=== PATIENT | female | born 1990 | race Caucasian/White ===

== ENCOUNTER 2020-05-06 18:56 | Outpatient (CLI) | payer MEDICAID | END 2020-05-06 18:57 | disposition home or self-care (01) | LOC: COV 18:56 | PROVIDERS: ATTEND Family Medicine | DX: Z20.828 Contact with and (suspected) exposure to other viral communicable diseases (principal) ==

== ENCOUNTER 2021-09-16 08:00 | Outpatient (CLI) | payer MEDICAID ==
[2021-09-16 22:51] LABS: BACTERIAL VAGINOSIS DNA NEGATIVE (NEGATIVE); CANDIDA GLABRATA DNA NEGATIVE (NEGATIVE); CANDIDA GROUP DNA NEGATIVE (NEGATIVE); CANDIDA KRUSEI DNA NEGATIVE (NEGATIVE); TRICHOMONAS VAGINALIS DNA NEGATIVE (NEGATIVE)
== END 2021-09-16 23:59 ==
LOC: LAB.N 08:00
PROVIDERS: ATTEND Family Medicine
DX: R30.0 Dysuria (principal)
CPT/HCPCS: 87086; 87661; 87801

== ENCOUNTER 2022-05-19 19:54 | Emergency (ER) | payer MEDICAID ==
[2022-05-19 20:11] VITALS: BP 105/74
[2022-05-19] MEDS ORDERED: OXYMETAZOLINE HCL 100 SPRAYS BOTTLE NAS STA (21:23)
--- NOTE | 2022-05-19 21:24 | ED Physician Documentation ---
PD HPI HEENT - Stated complaint Stated Complaint: NOSE BLEED/CLOTS - Chief complaint Chief Complaint: Heent - History obtained from History obtained from: Patient - Additional information Additional information: 31-year-old woman has had nosebleeds for 2 days. Mostly on the left but tonight also on the right. She notes clots. She also has had recently heavy periods. Denies other easy bleeding or bruising. 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: Tubal ligation - Present Medications Home Medications: Ambulatory Orders Medication Instructions Recorded Confirmed No Known Home Medications 05/19/22 05/19/22 - Allergies Allergies/Adverse Reactions: Allergies Allergy/AdvReac Type Severity Reaction Status Date / Time No Known Drug Allergies Allergy Verified 05/19/22 20:11 - Social History Does the pt smoke?: No Smoking Status: Never smoker Does the pt drink ETOH?: Yes Does the pt have substance abuse?: No - Immunizations Immunizations are current?: Yes - POLST Patient has POLST: No PD ED PE NORMAL - Vitals Vital signs reviewed: Yes - General General: Alert and oriented X 3, No acute distress - Neuro Neuro: Alert and oriented X 3, Normal speech - Psych Psych: Normal mood, Normal affect Results - Vitals Vitals: Vital Signs - 24 hr 05/19/22 20:04 Temperature 36.4 C L Heart Rate 80 Respiratory 16 Rate Blood Pressure 105/74 O2 Saturation 99 Oxygen O2 Source Room air - Labs Labs: Laboratory Tests 05/19/22 05/19/22 21:26 21:26 WBC 8.5 RBC 4.11 L Hgb 12.6 Hct 37.0 MCV 90.0 MCH 30.7 MCHC 34.1 RDW 12.4 Plt Count 275 MPV 9.8 Neut # (Auto) 5.6 Lymph # (Auto) 2.3 Hand # (Auto) 0.5 Eos # (Auto) 0.1 Baso # (Auto) 0.0 Absolute Nucleated RBC 0.00 Nucleated RBC % 0.0 PT 11.9 INR 1.1 Procedures - Epistaxis Site: Both, Anterior Preparation: Clots removed, Afrin, Clamp / pressure applied Treatment: Silver Nitrate (There were actually small bleeding spots inferiorly on both sides that were cauterized with silver nitrate) Other: Observed - no bleeding, Pt tolerated well Departure - Departure Disposition: 01 Home, Self Care Clinical Impression: Epistaxis Condition: Good Record reviewed to determine appropriate education?: Yes Instructions: ED Nosebleed Comments: Call your doctor to arrange a follow-up appointment, make the next available appointment. In the interim, return anytime if worse or if new symptoms develop.
[2022-05-19 21:33] LABS: BASOPHILS % (AUTO) 0.2 %; EOSINOPHILS # (AUTO) 0.1 10^3/uL (0.0-0.7); EOSINOPHILS % (AUTO) 1.1 %; HGB - HEMOGLOBIN 12.6 g/dL (12.0-16.0); LYMPHOCYTES # (AUTO) 2.3 10^3/uL (1.5-3.5); LYMPHOCYTES % (AUTO) 27.5 %; MEAN CORPUSCULAR HEMOGLOBIN 30.7 pg (27.0-31.0); MEAN CORPUSCULAR HGB CONC 34.1 g/dL (32.0-36.0); MEAN PLATELET VOLUME 9.8 fL (7.9-10.8); MONOCYTES # (AUTO) 0.5 10^3/uL (0.0-1.0); MONOCYTES % (AUTO) 5.8 %; NEUTROPHILS # (AUTO) 5.6 10^3/uL (1.5-6.6); NEUTROPHILS % (AUTO) 65.2 %; PLT - PLATELET COUNT 275 10^3/uL (130-450); RED BLOOD COUNT 4.11 10^6/uL (4.20-5.40); RED CELL DISTRIBUTION WIDTH 12.4 % (12.0-15.0); WHITE BLOOD COUNT 8.5 x10^3/uL (4.8-10.8)
[2022-05-19] MEDS ORDERED: SILVER NITRATE APPLICATOR TOP STA (21:34)
[2022-05-19 21:39] LABS: INR 1.1 (0.8-1.2); PT - PROTHROMBIN TIME 11.9 secs (9.9-12.6)
== END 2022-05-19 22:17 | disposition home or self-care (01) ==
LOC: ED 19:54
DX: R04.0 Epistaxis (principal)
CPT/HCPCS: 30901; 36415; 85025; 85610; 99283; A9270

== ENCOUNTER 2022-10-12 12:00 | Outpatient (CLI) | payer MEDICAID ==
[2022-10-12 21:01] LABS: CHLAMYDIA TRACHOMATIS DNA NEGATIVE (NEGATIVE); NEISSERIA GONORRHOEAE DNA NEGATIVE (NEGATIVE)
[2022-10-12 22:19] LABS: BACTERIAL VAGINOSIS DNA POSITIVE (NEGATIVE); CANDIDA GLABRATA DNA NEGATIVE (NEGATIVE); CANDIDA GROUP DNA NEGATIVE (NEGATIVE); CANDIDA KRUSEI DNA NEGATIVE (NEGATIVE); TRICHOMONAS VAGINALIS DNA NEGATIVE (NEGATIVE)
== END 2022-10-12 12:15 | disposition home or self-care (01) ==
LOC: LAB.N 12:00
PROVIDERS: ATTEND Physician Assistant
DX: N89.8 Other specified noninflammatory disorders of vagina (principal)
CPT/HCPCS: 81514; 87491; 87591; 87661

== ENCOUNTER 2022-11-10 08:00 | Outpatient (CLI) | payer MEDICAID ==
[2022-11-11 20:46] LABS: BACTERIAL VAGINOSIS DNA POSITIVE (NEGATIVE)
[2022-11-11 20:47] LABS: CANDIDA GLABRATA DNA NEGATIVE (NEGATIVE); CANDIDA GROUP DNA NEGATIVE (NEGATIVE); CANDIDA KRUSEI DNA NEGATIVE (NEGATIVE); TRICHOMONAS VAGINALIS DNA NEGATIVE (NEGATIVE)
[2022-11-11 22:56] LABS: CHLAMYDIA TRACHOMATIS DNA NEGATIVE (NEGATIVE); NEISSERIA GONORRHOEAE DNA NEGATIVE (NEGATIVE)
== END 2022-11-10 23:59 | disposition home or self-care (01) ==
LOC: LAB.N 08:00
PROVIDERS: ATTEND Physician Assistant
DX: N89.8 Other specified noninflammatory disorders of vagina (principal)
CPT/HCPCS: 81514; 87491; 87591; 87661

== ENCOUNTER 2023-12-03 08:00 | Outpatient (CLI) | payer MEDICAID ==
[2023-12-03 21:26] LABS: BACTERIAL VAGINOSIS DNA POSITIVE (NEGATIVE); CANDIDA GLABRATA DNA NEGATIVE (NEGATIVE); CANDIDA GROUP DNA NEGATIVE (NEGATIVE); CANDIDA KRUSEI DNA NEGATIVE (NEGATIVE); TRICHOMONAS VAGINALIS DNA NEGATIVE (NEGATIVE)
== END 2023-12-03 23:59 | disposition home or self-care (01) ==
LOC: LAB.WCP 08:00
PROVIDERS: ATTEND Emergency Medicine
DX: N89.8 Other specified noninflammatory disorders of vagina (principal)
CPT/HCPCS: 81514

== ENCOUNTER 2024-01-10 12:22 | Emergency (ER) | payer MEDICAID ==
[2024-01-10 12:38] VITALS: BP 123/70; O2SAT 100
[2024-01-10 12:55] LABS: BASOPHILS % (AUTO) 0.6 %; EOSINOPHILS # (AUTO) 0.1 10^3/uL (0.0-0.7); EOSINOPHILS % (AUTO) 1.5 %; HCT - HEMATOCRIT 36.8 % (37.0-47.0); HGB - HEMOGLOBIN 12.6 g/dL (12.0-16.0); LYMPHOCYTES # (AUTO) 2.3 10^3/uL (1.5-3.5); LYMPHOCYTES % (AUTO) 34.6 %; MEAN CORPUSCULAR HEMOGLOBIN 30.8 pg (27.0-31.0); MEAN CORPUSCULAR HGB CONC 34.2 g/dL (32.0-36.0); MEAN PLATELET VOLUME 10.1 fL (7.9-10.8); MONOCYTES # (AUTO) 0.5 10^3/uL (0.0-1.0); MONOCYTES % (AUTO) 7.1 %; NEUTROPHILS # (AUTO) 3.8 10^3/uL (1.5-6.6); NEUTROPHILS % (AUTO) 56.2 %; PLT - PLATELET COUNT 236 10^3/uL (130-450); RED BLOOD COUNT 4.09 10^6/uL (4.20-5.40); RED CELL DISTRIBUTION WIDTH 12.2 % (12.0-15.0); WHITE BLOOD COUNT 6.8 x10^3/uL (4.8-10.8)
[2024-01-10 13:14] LABS: ALBUMIN 4.3 g/dL (3.2-5.5); ALBUMIN/GLOBULIN RATIO 1.4 (1.0-2.2); BILIRUBIN,TOTAL 0.7 mg/dL (0.2-1.0); CALCIUM 9.6 mg/dL (8.5-10.3); CREATININE 0.5 mg/dL (0.6-1.3); POTASSIUM 3.9 mmol/L (3.5-4.5); TOTAL PROTEIN 7.3 g/dL (6.4-8.9)
== END 2024-01-10 14:39 | disposition left against medical advice (07) ==
LOC: ED 12:22
DX: Z53.21 Procedure and treatment not carried out due to patient leaving prior to being seen by health care provider (principal)
CPT/HCPCS: 36415; 80053; 83690; 85025

== ENCOUNTER 2024-01-20 07:00 | Outpatient (CLI) | payer MEDICAID ==
[2024-01-20 22:36] LABS: BACTERIAL VAGINOSIS DNA POSITIVE (NEGATIVE); CANDIDA GLABRATA DNA NEGATIVE (NEGATIVE); CANDIDA GROUP DNA NEGATIVE (NEGATIVE); CANDIDA KRUSEI DNA NEGATIVE (NEGATIVE); TRICHOMONAS VAGINALIS DNA NEGATIVE (NEGATIVE)
== END 2024-01-20 23:59 | disposition home or self-care (01) ==
LOC: LAB.S 07:00
PROVIDERS: ATTEND Obstetrics & Gynecology
DX: N89.8 Other specified noninflammatory disorders of vagina (principal)
CPT/HCPCS: 81514

== ENCOUNTER 2024-02-04 10:09 | Outpatient (CLI) | payer MEDICAID ==
--- NOTE | 2024-02-04 16:47 | XRAY Report ---
PROCEDURE: Ankle 3+V LT INDICATIONS: ARTHRALGIA TECHNIQUE: 3 views of the ankle were acquired. COMPARISON: None. FINDINGS: Bones: No fractures or dislocations. Ankle mortise is normally aligned on nonweightbearing view. Alaina int spaces are maintained. No suspicious bony lesions. Soft tissues: No tibiotalar joint effusion. Achilles tendon appears normal. IMPRESSION: No acute bony abnormality. No significant degenerative changes. Reviewed by: Ayala Gaviria MD on 02/04/2024 4:46 PM PDT Approved by: Ayala Gaviria MD on 02/04/2024 4:46 PM PDT Station ID: [id number]
== END 2024-02-04 10:10 | disposition home or self-care (01) ==
LOC: DI 10:09
PROVIDERS: ATTEND Physician Assistant
DX: M25.572 Pain in left ankle and joints of left foot (principal)
CPT/HCPCS: 36415; 84550

== ENCOUNTER 2024-02-06 11:03 | Outpatient (CLI) | payer MEDICAID ==
--- NOTE | 2024-02-06 19:06 | Ultrasound Report ---
PROCEDURE: Pelvic Complete INDICATIONS: AUB TECHNIQUE: Real-time transabdominal scanning was performed of the pelvic organs, with image documentation. COMPARISON: None FINDINGS: Uterus: Uterus is anteverted and normal in size at 11.3 x 4.7 x 7.0 cm. The myometrium is heterogen eous. The endometrium measures 5 mm in combined thickness. Small fluid seen within the cervix, mao batsheva patient is currently menstruating. Ovaries: The right ovary measures 2.5 x 2.3 x 1.9 cm, with a calculated ovarian volume of 5.6 cc. T he left ovary measures 2.0 x 1.6 x 1.3 cm, with a calculated ovarian volume of 3.3 cc. The ovaries h ave a normal sonographic appearance. Less than 12 follicles can be seen in each ovary. No adnexal m asses are seen. No cystic lesions measuring greater than 3 cm. Other: No free pelvic fluid. IMPRESSION: Normal appearance of the uterus and ovaries. The endometrium is normal in thickness. Reviewed by: Tay Langford MD on 02/06/2024 7:04 PM PDT Approved by: Tay Langford MD on 02/06/2024 7:04 PM PDT Station ID: [id number]
== END 2024-02-06 11:04 | disposition home or self-care (01) ==
LOC: DI 11:03
PROVIDERS: ATTEND Obstetrics & Gynecology
DX: N93.9 Abnormal uterine and vaginal bleeding, unspecified (principal)

== ENCOUNTER 2024-03-06 11:49 | Emergency (ER) | payer MEDICAID ==
[2024-03-06 13:03] LABS: BASOPHILS % (AUTO) 0.4 %; EOSINOPHILS # (AUTO) 0.1 10^3/uL (0.0-0.7); EOSINOPHILS % (AUTO) 0.8 %; HCT - HEMATOCRIT 35.7 % (37.0-47.0); HGB - HEMOGLOBIN 11.6 g/dL (12.0-16.0); LYMPHOCYTES # (AUTO) 1.4 10^3/uL (1.5-3.5); LYMPHOCYTES % (AUTO) 13.4 %; MEAN CORPUSCULAR HEMOGLOBIN 29.1 pg (27.0-31.0); MEAN CORPUSCULAR HGB CONC 32.5 g/dL (32.0-36.0); MEAN CORPUSCULAR VOLUME 89.5 fL (81.0-99.0); MEAN PLATELET VOLUME 10.2 fL (7.9-10.8); MONOCYTES # (AUTO) 0.8 10^3/uL (0.0-1.0); MONOCYTES % (AUTO) 7.8 %; NEUTROPHILS # (AUTO) 7.8 10^3/uL (1.5-6.6); NEUTROPHILS % (AUTO) 77.4 %; PLT - PLATELET COUNT 209 10^3/uL (130-450); RED BLOOD COUNT 3.99 10^6/uL (4.20-5.40); RED CELL DISTRIBUTION WIDTH 12.6 % (12.0-15.0); WHITE BLOOD COUNT 10.1 x10^3/uL (4.8-10.8)
[2024-03-06 13:17] LABS: ALBUMIN/GLOBULIN RATIO 1.4 (1.0-2.2); BILIRUBIN,TOTAL 0.6 mg/dL (0.2-1.0); CALCIUM 9.3 mg/dL (8.5-10.3); CREATININE 0.5 mg/dL (0.6-1.3); POTASSIUM 3.4 mmol/L (3.5-4.5); TOTAL PROTEIN 6.8 g/dL (6.4-8.9)
--- NOTE | 2024-03-06 13:27 | ED Physician Documentation ---
History of Present Illness - Stated complaint Stated Complaint: LT CHEST PX,REDNESS,NAUSEA - Chief complaint Chief Complaint: General - Additonal information Additional information: Patient is a 33-year-old female presenting to the emergency department with left breast pain redness and warmth symptoms have been going on since the weekend. Patient has not taken anything for her symptoms. She notes mild chills but no fevers nausea vomiting no previous history of this. She denies being no recent breast-feeding. 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: Tubal ligation - Present Medications Home Medications: Ambulatory Orders Medication Instructions Recorded Confirmed Sulfamethox/Trimeth 800/160 1 each PO BID #14 tablet 03/06/24 [Bactrim Ds 800/160] cephALEXin [Keflex] 500 mg PO Q6H #28 cap 03/06/24 - Allergies Allergies/Adverse Reactions: Allergies Allergy/AdvReac Type Severity Reaction Status Date / Time No Known Drug Allergies Allergy Verified 03/06/24 12:09 - Social History Does the pt smoke?: No Smoking Status: Never smoker Does the pt drink ETOH?: Yes Does the pt have substance abuse?: No - Immunizations Immunizations are current?: Yes - POLST Patient has POLST: No PD ED PE NORMAL - Vitals Vital signs reviewed: Yes - General General: Alert and oriented X 3 - HEENT HEENT: Atraumatic - Neck Neck: Supple, no meningeal sign - Cardiac Cardiac: RRR, No murmur, No gallop, No rub - Respiratory Respiratory: No respiratory distress, Clear bilaterally - Derm Derm: Other (Induration noted to 12:00 to 7 o'clock position of left breast. No appreciable nipple discharge reproducible left adnexal lymphadenopathy. No areas of fluctuance on examination. Severe pain on light touch. Mild erythema to the area no extension to right side of chest or neck.) - Extremities Extremities: No deformity - Neuro Neuro: Alert and oriented X 3 Eye Opening: Spontaneous Motor: Obeys Commands Verbal: Oriented GCS Score: 15 Results - Vitals Vitals: Vital Signs - 24 hr 09/09/24 09/09/24 09/09/24 12:04 13:42 15:33 Temperature 37.0 C 36.5 C 37.2 C Heart Rate 85 80 78 Respiratory 18 18 18 Rate Blood Pressure 114/61 98/53 L 110/73 O2 Saturation 100 98 100 Oxygen O2 Source Room air - Labs Labs: Laboratory Tests 03/06/24 03/06/24 03/06/24 12:57 12:57 13:22 WBC 10.1 RBC 3.99 L Hgb 11.6 L Hct 35.7 L MCV 89.5 MCH 29.1 MCHC 32.5 RDW 12.6 Plt Count 209 MPV 10.2 Neut # (Auto) 7.8 H Lymph # (Auto) 1.4 L [place] # (Auto) 0.8 Eos # (Auto) 0.1 Baso # (Auto) 0.0 Absolute Nucleated RBC 0.00 Nucleated RBC % 0.0 Sodium 136 Potassium 3.4 L Chloride 104 Carbon Dioxide 28 Anion Gap 4.0 L BUN 12 Creatinine 0.5 L Estimated GFR (MDRD) 140 Glucose 90 Calcium 9.3 Total Bilirubin 0.6 AST 12 ALT 6 L Alkaline Phosphatase 45 Total Protein 6.8 Albumin 4.0 Globulin 2.8 Albumin/Globulin Ratio 1.4 Urine HCG, Qual NEGATIVE PD Medical Decision Making - ED course Complexity details: reviewed old records ED course: Patient is a 33-year-old female presenting to the emergency department with left-sided chest pain. Symptoms have been going on since Over the weekend. Patient has not taken anything for symptoms she denies any fevers but has had intermittent chills. She denies any breast-feeding denies being at this time. Patient denies any nipple discharge. Vital stable on arrival she is afebrile nontachycardic. Reproducible tenderness to left portion of breath from 12:00 to 7 o'clock position of left breast with no nipple discharge and left adnexal lymphadenopathy on examination. Discussed with patient we will obtain labs and ultrasound here in the emergency department. Labs show no significant leukocytosis CMP is unremarkable and test returns negative. I did discuss with Dr. Corley who is aware of patient as g eneral surgery on-call today. Ultrasound performed limited here in emergency department no signs of drainable fluid on ultrasound. They are recommending repeat ultrasound to ensure resolution symptoms. General surgery was updated they are agreeable to see her in the outpatient setting in the office. Patient will be on oral antibiotics Keflex and Bactrim in the outpatient setting. Patient understands and is agreeable with this plan.Patient will follow-up for repeat ultrasound whether her symptoms are persistent or resolved. She will return with any fevers chills worsening pain or any other new or worsening symptoms. Departure - Departure Disposition: 01 Home, Self Care Clinical Impression: Cellulitis of left breast Condition: Good Instructions: Cellulitis Dc Follow-Up: Ari Ruiz MD [Provider Admit Priv/Credential] - Comments: You were seen here in the emergency department for your persistent Left breast swelling. Your workup here showed no abscess only skin infection. I have started you on 2 oral antibiotics please take as prescribed I have given you the follow-up number for surgery you can call to make an appointment for reevaluation. You will need a repeat ultrasound in the outpatient setting to ensure resolution of these symptoms follow-up with your PCP for this in the outpatient setting. If you develop any fevers worsening pain discharge from the wound or symptoms persist despite taking antibiotics please return to the emergency department. Forms: PCP List
[2024-03-06] MEDS: cefTRIAXone 2 GM in SODIUM CHLORIDE 0.9% MINIBAG 100 ML IV STA (13:37)
[2024-03-06 13:42] LABS: HCG UR QUAL NEGATIVE
[2024-03-06] MEDS: POTASSIUM CHLORIDE 20 MEQ TABLET PO STA (14:13)
[2024-03-06 15:40] VITALS: BP 110/73; O2SAT 100
--- NOTE | 2024-03-07 09:05 | Ultrasound Report ---
LIMITED ULTRASOUND OF LEFT BREAST: 03/06/2024 CLINICAL: Focal left breast pain. No prior exams were available for comparison. Color flow and real-time ultrasound of the left breast 12-3 o'clock, and retroareolar regions were p erformed. Mcdaniels scale images of the real-time examination were reviewed. At the area of clinical concern in the anterior aspect of the left breast from the 12-3 oclock positi on, there is diffuse skin erythema and skin thickening with associated moderate subcutaneous soft tis hadley inflammation. No drainable fluid collections seen. Associated inflammation. There are a few ecta ctic ducts with internal debris and no suspicious intraductal mass. IMPRESSION: PROBABLY BENIGN Findings consistent with mastitis/cellulitis of the anterior left breast between the 12-3 o'clock pos itions without drainable fluid collections or suspicious mass. Recommend follow up bilateral diagnostic mammogram and left breast ultrasound in one month after comp letion of treatment to document resolution of findings. Findings and recommendations were conveyed to the patient during today's evaluation. This exam was interpreted at Station ID: [id number]. Electronically Signed By: Evgeny raya/:03/06/2024 16:08:24 Entry: aa - 03/07/2024 08:56:55 Ultrasound BI-RADS: 3 Probably benign BI-RADS CATEGORY: (3) - 3 Mammo and [place] [id number] 1 month follow-up LATERALITY: (B)
== END 2024-03-06 15:50 | disposition home or self-care (01) ==
LOC: ED 11:49
DX: N61.0 Mastitis without abscess (principal)
CPT/HCPCS: 36415; 76642; 80053; 81025; 85025; 96365; 99283; 99284; A9270